=== PATIENT | female | born 1950 | race American Indian/Alaskan Native ===

== ENCOUNTER 2018-03-02 05:51 | Day surgery (SDC) | payer MEDICARE ==
[~2018-03-02 05:51] MED LIST: HEPARIN 10,000 UNITS/10 ML IV ONE; MARCAINE 0.5% INFILTRATI ONE; NACL 0.9% 500 ML IV ONE; NACL 0.9% IR ONE
[2018-03-02] MEDS ORDERED: ANCEF/STERILE WATER 2 GM/20 ML 2 GM/20 ML SYRINGE IV NR (06:00)
[2018-03-02] MEDS ORDERED: NACL 0.9% 1000 ML 1,000 ML IV SCH (06:00)
[2018-03-02] MEDS ORDERED: DIPRIVAN 10 MG/ML IV ONE (07:18)
[2018-03-02] MEDS ORDERED: XYLOCAINE MPF 2% ONE (07:18)
[2018-03-02] MEDS ORDERED: DILAUDID ONE (07:18)
[2018-03-02] MEDS ORDERED: NACL 0.9% 500 ML 500 ML ONE (07:20)
[2018-03-02] MEDS ORDERED: PROTAMINE SULFATE ONE (07:20)
[2018-03-02] MEDS ORDERED: MARCAINE-EPI 0.5%-1:200,000 INFILTRATI ONE (07:20)
[2018-03-02] MEDS ORDERED: HEPARIN 10,000 UNITS/10 ML ONE (07:20)
[2018-03-02] MEDS ORDERED: MARCAINE 0.5% INFILTRATI ONE (07:20)
[2018-03-02 07:28] LABS: Hemoglobin 12.6 gm/dl (10.1-14.3); Red Blood Count 4.21 M/mm3 (3.65-5.03)
[2018-03-02 07:29] LABS: Basophils % (Auto) 0.8 % (0.0-1.8); Eosinophils # (Auto) 0.2 K/mm3 (0.0-0.4); Eosinophils % (Auto) 4.9 % (0.0-4.3); Hematocrit 40.1 % (30.3-42.9); Lymphocytes # (Auto) 0.9 K/mm3 (1.2-5.4); Lymphocytes % (Auto) 18.7 % (13.4-35.0); Mean Corpuscular HGB Conc 32 % (30-34); Mean Corpuscular Hemoglobin 30 pg (28-32); Mean Corpuscular Volume 95 fl (79-97); Monocytes # (Auto) 0.6 K/mm3 (0.0-0.8); Monocytes % (Auto) 11.8 % (0.0-7.3); Platelet Count 114 K/mm3 (140-440); Red Cell Distribution Width 17.9 % (13.2-15.2)
--- NOTE | 2018-03-02 07:34 | Anesthesia Consultation ---
Anesthesia Consult and Med Hx Date of service: 03/02/18 - Airway Anesthetic Teeth Evaluation: Edentulous ROM Head & Neck: Inadequate Mental/Hyoid Distance: Adequate Mallampati Class: Class IV Intubation Access Assessment: Difficult - Pulmonary Exam CTA: Yes - Cardiac Exam Cardiac Exam: RRR - Pre-Operative Health Status ASA Pre-Surgery Classification: ASA4 Proposed Anesthetic Plan: General - Pulmonary Hx Smoking: Yes Hx Asthma: Yes Hx Sleep Apnea: Yes - Cardiovascular System Hx Hypertension: Yes - Central Nervous System Hx Neuromuscular Disorder: Yes (Paraplegic) Hx Psychiatric Problems: Yes - Gastrointestinal Hx Gastroesophageal Reflux Disease: No - Endocrine Hx Renal Disease: Yes Hx End Stage Renal Disease: Yes Hx Insulin Dependent Diabetes: Yes - Hematic Hx Anemia: No Hx Sickle Cell Disease: No - Other Systems Hx Cancer: No - Additional Comments Anesthesia Medical History Comments: No GAC, No FHAC
[2018-03-02 07:38] LABS: Calcium 8.9 mg/dL (8.4-10.2)
[2018-03-02] MEDS ORDERED: SUBLIMAZE IV PRN (07:40)
[2018-03-02] MEDS ORDERED: ZOFRAN IV PRN (07:40)
--- NOTE | 2018-03-02 07:40 | Anesthesia Day of Surgery ---
Anesthesia Day of Surgery - Day of Surgery Patient Examined: Yes Patient H&P Reviewed: Yes Patient is NPO: Yes
[2018-03-02] MEDS ORDERED: ZOFRAN ONE (11:33)
--- NOTE | 2018-03-02 11:48 | Operative Report ---
Operative Report Operative Report: Operative note: Date: 03/02/2018 Preoperative diagnosis: Endstage renal disease on hemodialysis Postoperative diagnosis: Same. Operation: Left arm loop AV graft creation Surgeon: Clover Anderson. Asst.: Vargas Dickinson Anesthesia: Gen. EBL: Less than 50 mL Findings: Soft proximal brachial artery and patent brachial vein. Elbow contracture was elevated forearm extension. Indications: 67-year-old lady was chronic paralysis and lupus, multiple previous AV graft creations and currently undergoing hemodialysis via left IJ PermCath was discussed from the exit creation. Her previous axis was in the right arm that was excised for infection recently. At this time and she was advised to have a left arm AV graft. All risks, benefits and alternatives were discussed with her and her family and chose to proceed and signed informed consent. Operative details: Patient was brought to the operating room and placed in supine position with left arm on an arm table. Ultrasound was performed locating proximal brachial artery as well as proximal brachial vein. Left arm was then prepped and draped in sterile fashion. Timeout was performed and all team members in agreement. The incision was made in the medial portion of the biceps in the vertical fashion with skin blade and carried down with electrocautery. Fascia was incised was Metzenbaum scissors brachial artery and vein were dissected and taken on vessel loop. Medial nerve was identified and preserved. 4-7 millimeter AcuSeal graft was tunneled with Aye Wick tunneler in a circular fashion with counterincision in the lower portion of the arm. At this moment patient was given 3000 units of heparin and allowed to circulate for 3 minutes. Proximal and distal controls of the artery were gained using angled DeBakey clamps. 4 mm portion was beveled at the arterial side. Arteriotomy was created with 11 blade and extended with Coronel scissors. Anastomosis was created with 6-0 Prolene in circumferential fashion. Graft was open, clamped at the arterial side and flushed with heparinized saline. The next step, graft was transected beveling at the planned venous anastomosis. The vein was clamped with angled DeBakey clamps gaining distal and proximal controls. Venotomy was created with 11 blade and carried with Coronel scissors. Circumferential anastomosis was created with 6-0 Prolene and flushed before completion. 2 repair stitches were placed. Both anastomosis were checked for hemostasis. Graft area was palpated and good thrill appreciated. Wounds were irrigated and checked for hemostasis. Incisions were closed in layers with 3-0 Vicryl interrupted dermal and 4-0 Monocryl running subcuticular. Dermabond was applied. Good radial pulse was palpated at the end of procedure as well as graft thrill. All needles and sponge counts were correct. Patient tolerated the procedure well and was transferred to PACU in stable condition.
--- NOTE | 2018-03-02 11:52 | Short Stay Summary ---
Short Stay Documentation Date of service: 03/02/18 - History H&P: obtained from office - Allergies and Medications Current Medications: Allergies No Known Allergies Allergy (Unverified 12/17/17 10:31) NO NEW ALLERGIES Home Medications Medication Instructions Recorded Confirmed Last Taken Type Losartan Potassium 100 mg PO DAILY 08/19/13 03/02/18 03/01/18 09:00 History Omeprazole 40 mg PO DAILY 08/19/13 03/02/18 03/01/18 09:00 History Carvedilol [Coreg] 12.5 mg PO BID 10/21/16 03/02/18 03/02/18 07:15 History Cyclobenzaprine [Flexeril 10 MG 10 mg PO QHS 10/21/16 03/02/18 03/01/18 19:00 History TAB] Gabapentin [Gralise] 300 mg PO QHS 10/21/16 03/02/18 03/01/18 19:00 History Sertraline [Zoloft] 100 mg PO QDAY 10/21/16 03/02/18 03/01/18 09:00 History predniSONE [Deltasone] 5 mg PO DAILY 10/21/16 03/02/18 03/02/18 07:43 History Albuterol Sulfate 1.25 mg IH PRN PRN 12/11/17 03/02/18 Unknown History B Complex 11/Folic/C/Biot/Zinc 1 tab PO DAILY 12/11/17 03/02/18 03/01/18 09:00 History [Dialyvite with Zinc Tablet] Megestrol [Megace] 20 mg PO DAILY 12/11/17 03/02/18 03/01/18 09:00 History Sodium Bicarbonate 2 tab PO BID 12/11/17 03/02/18 03/01/18 19:00 History Allopurinol [Zyloprim] 100 mg PO QDAY tablet 12/17/17 03/02/18 03/01/18 09:00 Rx amLODIPine [Norvasc] 10 mg PO DAILY #30 tablet 12/17/17 03/02/18 03/02/18 07:00 Rx cloNIDine [Catapres] 0.2 mg PO TID #90 tablet 12/17/17 03/02/18 03/02/18 07:00 Rx Active Medications Fentanyl (Sublimaze) 50 mcg IV Q5MIN PRN PRN Reason: Pain , Severe (7-10) Stop: 03/02/18 20:00 Cefazolin Sodium (Ancef/Sterile Water 2 Gm/20 Ml) 2 gm in 20 mls @ 80 mls/hr IV PREOP NR; Protocol Stop: 03/02/18 16:00 Sodium Chloride (Nacl 0.9% 1000 Ml) 1,000 mls @ 42 mls/hr IV DIRECT ELVA Last Admin: 03/02/18 07:10 Dose: 42 mls/hr Ondansetron HCl (Zofran) 4 mg IV ONCE PRN PRN Reason: Nausea And Vomiting Stop: 03/02/18 20:00 - Brief post op/procedure progress note Date of procedure: 03/02/18 Pre-op diagnosis: ESRD on HD Post-op diagnosis: same Procedure: Creation of left arm loop AV graft Anesthesia: GETA Findings: Soft proximal brachial artery and good size vein. Elbow contracture without full extension of left forearm Surgeon: BOGDAN SOTO Security Operations Specialist: TOMMY HELTON Estimated blood loss: minimal Pathology: none Condition: stable - Disposition Condition at discharge: Good Disposition: DC-01 TO HOME OR SELFCARE Short Stay Discharge Plan Diet: renal Wound: open to air Follow up with: ARIANA MURCIA MD [Primary Care Provider] - 7 Days BOGDAN SOTO DO [Staff Physician] - 14 Days Prescriptions: HYDROcodone/ACETAMINOPHEN [[place] 5-325 Tablet] 1 each PO Q4HR PRN #26 tablet PRN Reason: Pain , Severe (7-10)
[2018-03-02 15:34] VITALS: BP 116/65
== END 2018-03-02 15:20 | disposition home or self-care (01) ==
LOC: OR 05:51
PROVIDERS: ATTEND Surgery Vascular Surgery
DX: I12.0 Hypertensive chronic kidney disease with stage 5 chronic kidney disease or end stage renal disease (principal); E11.22 Type 2 diabetes mellitus with diabetic chronic kidney disease; N18.6 End stage renal disease; K21.9 Gastro-esophageal reflux disease without esophagitis; F32.9 Major depressive disorder, single episode, unspecified; M19.90 Unspecified osteoarthritis, unspecified site; G47.30 Sleep apnea, unspecified; J45.909 Unspecified asthma, uncomplicated; T82.590A Other mechanical complication of surgically created arteriovenous fistula, initial encounter; Z98.51 Tubal ligation status; Z98.891 History of uterine scar from previous surgery; Z90.710 Acquired absence of both cervix and uterus; Z99.2 Dependence on renal dialysis; Z96.651 Presence of right artificial knee joint; Z98.890 Other specified postprocedural states; Z91.81 History of falling; Z79.899 Other long term (current) drug therapy; Z79.01 Long term (current) use of anticoagulants
CPT/HCPCS: 36415; 36830; 80048; 82962; 85025; C1768; J1170; J1644; J2405; J2704; J7030; J7040; J2720